=== PATIENT | female | born 1980 | race Caucasian/White ===

== ENCOUNTER 2018-03-26 02:39 | Inpatient (IN) | payer BC ==
[2018-03-26] VITALS (36 sets, daily range): BP systolic 76–126; BP diastolic 51–86; PULSE 70–104; TEMP 97.9–98.4
[~2018-03-26] VITALS: Ht 170.2 cm; Wt 70.0 kg
[~2018-03-26 02:39] MED LIST: COLACE 100100 MG/CAP PO; FERRATE325 MG PO; MOTRIN 600600 MG/TAB PO; PERCOCET 325 MG1 TA2 PO; PRENATAL VITAMI1 TAB PO; PRENATAL1 TA7 PO; SENOKOT S 50 MG1 TAB PO; TIROSINT88 MC1 PO
[2018-03-26] MEDS ORDERED: LEVOXYL0.1 MG PO (03:09)
[2018-03-26 05:21] LABS: BASO % 0.4 % (0.0-2.0); EOS # 0.1 (0.0-0.7); EOS % 1.6 % (0-4.0); GRAN # 4.6 (1.4-6.5); GRAN % 60.9 % (42.2-75.2); HEMOGLOBIN 12.2 g/dl (12.5-16.0); LYMPH # 2.3 (1.2-3.4); LYMPH % 29.8 % (20.0-51.0); MEAN CELL VOLUME 92 fl (80.0-100.0); MEAN CORPUSCULAR HEMOGLOBIN 32 pg (27.0-31.0); MEAN CORPUSCULAR HGB CONC 35 g/dl (33.0-37.0); MONO # 0.5 (0.1-0.6); MONO % 6.9 % (1.7-9.3); PLATELET COUNT 216 K/mm3 (130-400); RED BLOOD COUNT 3.81 M/mm3 (4.10-5.30); REDCELL DISTRIBUTION WIDTH-CV 12.8 % (11.5-14.5)
[2018-03-26 05:50] LABS: HEMATOCRIT 35.2 % (37.0-47.0)
[2018-03-27] VITALS: BP 108/64; PULSE 70; TEMP 98.7
[2018-03-27 08:00] VITALS: BP 107/68; PULSE 78; TEMP 98
[2018-03-27] MEDS ORDERED: IBU600 MG PO (09:57)
[2018-03-27] MEDS ORDERED: PERCOCET 325 MG1 TA2 PO (09:58)
== END 2018-03-27 17:45 | disposition home or self-care (01) | DRG 775 ==
LOC: LDRO 02:39 → LDR 04:30 → OB 14:26 → LDRO 03-29 15:06
PROVIDERS: Obstetrics & Gynecology
PROC: 10E0XZZ Delivery of Products of Conception, External Approach (ICD-10-PCS; principal; 2018-03-26)
PROC: 0HQ9XZZ Repair Perineum Skin, External Approach (ICD-10-PCS; 2018-03-26)
DX: O70.0 First degree perineal laceration during delivery (principal); Z3A.39 39 weeks gestation of pregnancy; Z37.0 Single live birth; O99.284 Endocrine, nutritional and metabolic diseases complicating childbirth; E03.9 Hypothyroidism, unspecified; Z23 Encounter for immunization
CPT/HCPCS: J2590; J2795; J7120

== ENCOUNTER → 2024-04-21 | Outpatient (CLI) | payer OTHER ==
[~2024-04-21] MED LIST changes: +IBU600 MG PO; +LEVOXYL0.1 MG PO
== END ==
LOC: MC.RAD 09:28
DX: Z12.31 Encounter for screening mammogram for malignant neoplasm of breast (principal)